=== PATIENT | female | born 1945 | race Caucasian/White ===

== ENCOUNTER 2017-05-29 10:48 | Emergency (ER) | payer MEDICARE, BC ==
[2017-05-29 12:48] LABS: Hematocrit 31 % (35-47); Hemoglobin 10.3 g/dl (12.0-16.0); Mean Corpuscular HGB Conc 34 g/dl (31-36); Mean Corpuscular Hemoglobin 32 pg (27-31); Mean Corpuscular Volume 95 fL (80-97); Mean Platelet Volume 8 um3 (7.4-10.4); Red Blood Count 3.23 10^6/ul (4.0-5.4); Red Cell Distribution Width 16 % (10.5-15); White Blood Count 5.9 10^3/ul (3.5-10.8)
[2017-05-29 13:05] LABS: ALT 17 U/L (7-52); AST 23 U/L (13-39); Albumin 3.2 g/dL (3.2-5.2); Alkaline Phosphatase 72 U/L (34-104); Anion Gap 4 mmol/L (2-11); Blood Urea Nitrogen 21 mg/dL (6-24); CO2 Carbon Dioxide 25 mmol/L (22-32); Chloride 104 mmol/L (101-111); EGFR African American 70.3 (>60); EGFR Non-African American 54.7 (>60); Globulin 3.9 g/dL (2-4); Glucose 103 mg/dL (70-100); Potassium 4.4 mmol/L (3.5-5.0); Sodium 133 mmol/L (133-145); Total Protein 7.1 g/dL (6.4-8.9)
[2017-05-29 13:06] LABS: Troponin I 0.03 ng/mL (<0.04)
[2017-05-29 13:35] LABS: Acetaminophen < 15 mcg/mL; Alcohol < 10 mg/dL (<10)
[2017-05-29 13:52] LABS: TSH (Thyroid Stimulating Horm) < 0.01 mcIU/mL (0.34-5.60)
[2017-05-29 14:22] VITALS: BP 126/78
[2017-05-29 15:17] LABS: Urine Bacteria 3+ (Absent); Urine Bilirubin Negative (Negative); Urine Glucose 1+(50 mg/dL) (Negative); Urine Nitrite Positive (Negative)
[2017-05-29 15:27] LABS: Benzodiazepine Urine Screen None Detected (None Detect)
--- NOTE | 2017-05-29 22:36 | ED ---
Jorge A Brown Julia, scribed for Neil Frausto MD on 05/29/17 at 1146 . Complex/Multi-Sys Presentation - HPI Summary HPI Summary: This patient is a 71 year old female presenting to [facility] [place] accompanied by with a chief complaint of anxiety worse earlier today. The patient rates the pain 0/10 in severity. Symptoms aggravated by not being able to get my infusion. Symptoms alleviated by spontaneous resolution. reports fall on slippery floor, and irrational behavior. Patient denies pain or injury from fall. - History Of Current Complaint Chief Complaint: EDMentalHealth Time Seen by Provider: 05/29/17 11:13 Hx Obtained From: Patient, Family/Freight Booker Onset/Duration: Gradual Onset, Resolved Severity Currently: None Severity Initially: Moderate Location: Negative - negative pain Aggravating Factor(s): not being able to get my infusion. Alleviating Factor(s): nothing Associated Signs And Symptoms: Positive: Other - reports fall on slippery floor, and irrational behavior. Patient denies pain or injury from fall. - Allergies/Home Medications Allergies/Adverse Reactions: Allergies Allergy/AdvReac Type Severity Reaction Status Date / Time Erythromycin Allergy Mild Rash Verified 05/01/13 06:48 Iodinated Contrast Media Allergy Unknown See Comment Verified 05/01/13 06:48 [CONTRAST DYE] Influenza Virus Vaccine H5N1 Allergy Numbness Verified 12/25/16 12:57 Latex Allergy ITCHY Verified 05/01/13 06:48 Sulfamethoxazole Allergy GI Upset Verified 05/01/13 06:48 w/Trimethoprim [From Bactrim] Carbamazepine [From Tegretol] AdvReac Intermediate Nausea Verified 05/01/13 06: 48 Oxymetazoline [From Afrin] AdvReac Intermediate Shortness Verified 05/01/13 06: 48 of Breath Docusate [From Colace] AdvReac Unknown Fever Verified 09/06/15 15:01 scallops Allergy Intermediate Shortness Uncoded 05/01/13 06:48 of Breath FLU SHOT Allergy NUMBNESS Uncoded 05/01/13 06:48 IN LEGS AND FEET FOR WEEKS AFTER INJECTION Home Medications: Home Medications Bromocriptine TAB* [Parlodel TAB*] 2.5 mg PO DAILY 05/29/17 [History Confirmed 05/29/17] Cholecalciferol TAB* [Vitamin D TAB*] 1,000 unit PO BID 05/29/17 [History Confirmed 05/29/17] Dexamethasone TAB* [Decadron TAB*] 28 mg PO MO 05/29/17 [History Confirmed 05/29] Escitalopram (NF) [Lexapro 10 mg (NF)] 10 mg PO DAILY 05/29/17 [History Confirmed 05/29/17] Lenalidomide (NF) [Revlimid (NF)] 25 mg PO DAILY 05/29/17 [History Confirmed ] Loperamide HCl [Imodium A-D] 2 mg PO DAILY PRN 05/29/17 [History Confirmed 05/29] Oxybutynin TAB* [Ditropan TAB*] 5 mg PO DAILY 05/29/17 [History Confirmed ] Oxycodone HCl [Oxycodone HCl ER] 10 mg PO BID 05/29/17 [History Confirmed ] Pyridoxine TAB* [Vitamin B6 TAB*] 100 mg PO DAILY 05/29/17 [History Confirmed ] Senna TAB* [Senokot TAB*] 2 tab PO DAILY PRN 05/29/17 [History Confirmed ] ValACYclovir (*) [Valtrex 500 mg (*)] 500 mg PO BID 05/29/17 [History Confirmed 05/29/17] Warfarin TAB(*) [Coumadin TAB(*)] 1 mg PO DAILY 05/29/17 [History Confirmed ] levETIRAcetam TAB* [Keppra TAB*] 500 mg PO BID 05/29/17 [History Confirmed 05/29] PMH/Surg Hx/FS Hx/Imm Hx Endocrine/Hematology History: Reports: 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, 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, CYSTS, Hx Anemia Denies: Hx Diabetes Cardiovascular History: Denies: Hx Hypertension, Hx Pacemaker/ICD Respiratory History: Reports: Hx Asthma - MILD, Hx Pulmonary Embolism - 06/2008- GI History: Reports: Other GI Disorders - CONSTIPATION, AND SOME DIARRHEA- RECENT COLONOSCOPY History: Reports: Hx Kidney Infection - 1982, Hx Kidney Stones - CALCIUM CRYSTALS IN 01/2013- AND STONES IN 1983, 2008, Hx Renal Disease - RENAL INSUFFIENCY Musculoskeletal History: Reports: Hx Arthritis - BACK AND LEFT KNEE, KNUCKLES, Hx Osteoporosis Sensory History: Reports: Hx Contacts or Glasses - GLASSES Denies: Hx Hearing Aid Opthamlomology History: Reports: Hx Contacts or Glasses - GLASSES Neurological History: Reports: 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 MELANOMA REMOVED. BREAST ADENOMAS REMOVED MULTIPLE IN . [facility] [place] IN [place] - CAN ONLY GO TO 1.5T FOR MRI. RIGHT BREAST SURGERY -04/2013[place] [place]x Anesthesia Reactions: No - PATIENT STATES IS VERY SENSITIVE Infectious Disease History: No Infectious Disease History: Denies: Traveled Outside the [place] in Last 30 Days - Family History Known Family History: Positive: Hypertension, Other - Cancers, PE - Social History Alcohol Use: None Hx Substance Use: No Substance Use Type: Reports: None Hx Tobacco Use: No Smoking Status (MU): Never Smoked Tobacco Review of Systems Constitutional: Negative - pain Negative: Fever Positive: Other - fall on slippery floor." Positive: Anxious - not currently present, Other - irrational behavior. All Other Systems Reviewed And Are Negative: Yes Physical Exam - Summary Physical Exam Summary: Appearance: The patient is well-nourished in no acute distress and in no acute pain. Skin: The skin is warm and dry and skin color reflects adequate perfusion. Patient has external oral lesions. HEENT: The head is normocephalic and atraumatic. The pupils are equal and reactive. The conjunctivae are clear and without drainage. Nares are patent and without drainage. Mouth reveals moist mucous membranes and the throat is without erythema and exudate. The external ears are intact. The ear canals are patent and without drainage. The tympanic membranes are intact. Neck: the neck is supple with full range of motion and non-tender. There are no carotid bruits. There is no neck vein distension. Respiratory: Chest is non-tender. Lungs are clear to auscultation and breath sounds are symmetrical and equal. Cardiovascular: Heart is regular rate and rhythm. There is no murmur or rub auscultated. There is no peripheral edema and pulses are symmetrical and equal. Abdomen: The abdomen is soft and non-tender. There are normal bowel sounds heard in all four quadrants and there is no organomegaly palpated. Musculoskeletal: There is no back tenderness noted. Extremities are non-tender with full range of motion. There is good capillary refill. There is no peripheral edema or calf tenderness elicited. Neurological: Patient is alert and oriented to person, place and time. The patient has symmetrical motor strength in all four extremities. Cranial nerves are grossly intact. Deep tendon reflexes are symmetrical and equal in all four extremities. Psychiatric: The patient has an appropriate affect and does not exhibit any anxiety or depression. Triage Information Reviewed: Yes Vital Signs On Initial Exam: Initial Vitals Temp Pulse Resp BP Pulse Ox 98.5 F 94 18 126/65 97 05/29/17 10:55 05/29/17 10:55 05/29/17 10:55 05/29/17 10:55 05/29/17 10:55 Vital Signs Reviewed: Yes Skin: Positive: Other - oral lesions Diagnostics - Vital Signs Vital Signs Temp Pulse Resp BP Pulse Ox 05/29/17 10:55 98.5 F 94 18 126/65 97 - Laboratory Lab Results: Lab Results 05/29/17 05/29/17 05/29/17 Range/Units 12:22 12:22 12:22 WBC 5.9 (3.5-10.8) 10^3/ul RBC 3.23 L (4.0-5.4) 10^6/ul Hgb 10.3 L (12.0-16.0) g/dl Hct 31 L (35-47) % MCV 95 (80-97) fL MCH 32 H (27-31) pg MCHC 34 (31-36) g/dl RDW 16 H (10.5-15) % Plt Count 181 (150-450) 10^3/ul MPV 8 (7.4-10.4) um3 Neut % (Auto) 72.9 (38-83) % Lymph % (Auto) 7.8 L (25-47) % Mcintosh % (Auto) 19.2 H (1-9) % Eos % (Auto) 0 (0-6) % Baso % (Auto) 0.1 (0-2) % Absolute Neuts (auto) 4.3 (1.5-7.7) 10^3/ul Absolute Lymphs (auto) 0.5 L (1.0-4.8) 10^3/ul Absolute Monos (auto) 1.1 H (0-0.8) 10^3/ul Absolute Eos (auto) 0 (0-0.6) 10^3/ul Absolute Basos (auto) 0 (0-0.2) 10^3/ul Absolute Nucleated RBC 0.01 10^3/ul Nucleated RBC % 0.1 INR (Anticoag Therapy) (0.77-1.02) Sodium 133 (133-145) mmol/L Potassium 4.4 (3.5-5.0) mmol/L Chloride 104 (101-111) mmol/L Carbon Dioxide 25 (22-32) mmol/L Anion Gap 4 (2-11) mmol/L BUN 21 (6-24) mg/dL Creatinine 1.00 H (0.51-0.95) mg/dL Est GFR ( Amer) 70.3 (>60) Est GFR (Non-Af Amer) 54.7 (>60) BUN/Creatinine Ratio 21.0 H (8-20) Glucose 103 H (70-100) mg/dL Lactic Acid (0.5-2.0) mmol/L Calcium 9.0 (8.6-10.3) mg/dL Total Bilirubin 0.30 (0.2-1.0) mg/dL AST 23 (13-39) U/L ALT 17 (7-52) U/L Alkaline Phosphatase 72 (34-104) U/L Ammonia 44 (16-53) mol/L Troponin I 0.03 (<0.04) ng/mL Total Protein 7.1 (6.4-8.9) g/dL Albumin 3.2 (3.2-5.2) g/dL Globulin 3.9 (2-4) g/dL Albumin/Globulin Ratio 0.8 L (1-3) TSH < 0.01 L (0.34-5.60) mcIU/mL Urine Color Urine Appearance Urine pH (5-9) Ur Specific [place] (1.010-1.030) Urine Protein (Negative) Urine Ketones (Negative) Urine Blood (Negative) Urine Nitrate (Negative) Urine Bilirubin (Negative) Urine Urobilinogen (Negative) Ur Leukocyte Esterase (Negative) Urine WBC (Auto) (Absent) Urine RBC (Auto) (Absent) Ur Squamous Epith Cells (Absent) Urine Bacteria (Absent) Hyaline Casts (Absent) Urine Glucose (Negative) Urine Opiates Screen (None Detect) Acetaminophen < 15 mcg/mL Ur Barbiturates Screen (None Detect) Ur Phencyclidine Scrn (None Detect) Ur Amphetamines Screen (None Detect) U Benzodiazepines Scrn (None Detect) Urine Cocaine Screen (None Detect) U Cannabinoids Screen (None Detect) Serum Alcohol < 10 (<10) mg/dL 05/29/17 05/29/17 05/29/17 Range/Units 12:22 12:22 13:15 WBC (3.5-10.8) 10^3/ul RBC (4.0-5.4) 10^6/ul Hgb (12.0-16.0) g/dl Hct (35-47) % MCV (80-97) fL MCH (27-31) pg MCHC (31-36) g/dl RDW (10.5-15) % Plt Count (150-450) 10^3/ul MPV (7.4-10.4) um3 Neut % (Auto) (38-83) % Lymph % (Auto) (25-47) % Mcintosh % (Auto) (1-9) % Eos % (Auto) (0-6) % Baso % (Auto) (0-2) % Absolute Neuts (auto) (1.5-7.7) 10^3/ul Absolute Lymphs (auto) (1.0-4.8) 10^3/ul Absolute Monos (auto) (0-0.8) 10^3/ul Absolute Eos (auto) (0-0.6) 10^3/ul Absolute Basos (auto) (0-0.2) 10^3/ul Absolute Nucleated RBC 10^3/ul Nucleated RBC % INR (Anticoag Therapy) 2.68 H (0.77-1.02) Sodium (133-145) mmol/L Potassium (3.5-5.0) mmol/L Chloride (101-111) mmol/L Carbon Dioxide (22-32) mmol/L Anion Gap (2-11) mmol/L BUN (6-24) mg/dL Creatinine (0.51-0.95) mg/dL Est GFR ( Amer) (>60) Est GFR (Non-Af Amer) (>60) BUN/Creatinine Ratio (8-20) Glucose (70-100) mg/dL Lactic Acid 1.1 (0.5-2.0) mmol/L Calcium (8.6-10.3) mg/dL Total Bilirubin (0.2-1.0) mg/dL AST (13-39) U/L ALT (7-52) U/L Alkaline Phosphatase (34-104) U/L Ammonia (16-53) mol/L Troponin I (<0.04) ng/mL Total Protein (6.4-8.9) g/dL Albumin (3.2-5.2) g/dL Globulin (2-4) g/dL Albumin/Globulin Ratio (1-3) TSH (0.34-5.60) mcIU/mL Urine Color Urine Appearance Urine pH (5-9) Ur Specific [place] (1.010-1.030) Urine Protein (Negative) Urine Ketones (Negative) Urine Blood (Negative) Urine Nitrate (Negative) Urine Bilirubin (Negative) Urine Urobilinogen (Negative) Ur Leukocyte Esterase (Negative) Urine WBC (Auto) (Absent) Urine RBC (Auto) (Absent) Ur Squamous Epith Cells (Absent) Urine Bacteria (Absent) Hyaline Casts (Absent) Urine Glucose (Negative) Urine Opiates Screen Presumptive positive H (None Detect) Acetaminophen mcg/mL Ur Barbiturates Screen None detected (None Detect) Ur Phencyclidine Scrn None detected (None Detect) Ur Amphetamines Screen None detected (None Detect) U Benzodiazepines Scrn None detected (None Detect) Urine Cocaine Screen None detected (None Detect) U Cannabinoids Screen None detected (None Detect) Serum Alcohol (<10) mg/dL 05/29/17 Range/Units 13:15 WBC (3.5-10.8) 10^3/ul RBC (4.0-5.4) 10^6/ul Hgb (12.0-16.0) g/dl Hct (35-47) % MCV (80-97) fL MCH (27-31) pg MCHC (31-36) g/dl RDW (10.5-15) % Plt Count (150-450) 10^3/ul MPV (7.4-10.4) um3 Neut % (Auto) (38-83) % Lymph % (Auto) (25-47) % Mcintosh % (Auto) (1-9) % Eos % (Auto) (0-6) % Baso % (Auto) (0-2) % Absolute Neuts (auto) (1.5-7.7) 10^3/ul Absolute Lymphs (auto) (1.0-4.8) 10^3/ul Absolute Monos (auto) (0-0.8) 10^3/ul Absolute Eos (auto) (0-0.6) 10^3/ul Absolute Basos (auto) (0-0.2) 10^3/ul Absolute Nucleated RBC 10^3/ul Nucleated RBC % INR (Anticoag Therapy) (0.77-1.02) Sodium (133-145) mmol/L Potassium (3.5-5.0) mmol/L Chloride (101-111) mmol/L Carbon Dioxide (22-32) mmol/L Anion Gap (2-11) mmol/L BUN (6-24) mg/dL Creatinine (0.51-0.95) mg/dL Est GFR ( Amer) (>60) Est GFR (Non-Af Amer) (>60) BUN/Creatinine Ratio (8-20) Glucose (70-100) mg/dL Lactic Acid (0.5-2.0) mmol/L Calcium (8.6-10.3) mg/dL Total Bilirubin (0.2-1.0) mg/dL AST (13-39) U/L ALT (7-52) U/L Alkaline Phosphatase (34-104) U/L Ammonia (16-53) mol/L Troponin I (<0.04) ng/mL Total Protein (6.4-8.9) g/dL Albumin (3.2-5.2) g/dL Globulin (2-4) g/dL Albumin/Globulin Ratio (1-3) TSH (0.34-5.60) mcIU/mL Urine Color Aline Urine Appearance Turbid Urine pH 5.0 (5-9) Ur Specific [place] 1.019 (1.010-1.030) Urine Protein 1+(30 mg/dl) H (Negative) Urine Ketones Negative (Negative) Urine Blood 2+ H (Negative) Urine Nitrate Positive H (Negative) Urine Bilirubin Negative (Negative) Urine Urobilinogen Negative (Negative) Ur Leukocyte Esterase 3+ H (Negative) Urine WBC (Auto) 3+(>20/hpf) H (Absent) Urine RBC (Auto) 3+(>10/hpf) H (Absent) Ur Squamous Epith Cells Present H (Absent) Urine Bacteria 3+ H (Absent) Hyaline Casts Present H (Absent) Urine Glucose 1+(50 mg/dl) H (Negative) Urine Opiates Screen (None Detect) Acetaminophen mcg/mL Ur Barbiturates Screen (None Detect) Ur Phencyclidine Scrn (None Detect) Ur Amphetamines Screen (None Detect) U Benzodiazepines Scrn (None Detect) Urine Cocaine Screen (None Detect) U Cannabinoids Screen (None Detect) Serum Alcohol (<10) mg/dL Result Diagrams: 05/29/17 12:22 05/29/17 12:22 Lab Statement: Any lab studies that have been ordered have been reviewed, and results considered in the medical decision making process. - EKG 1156 Cardiac Rate: NL EKG Rhythm: Sinus Rhythm - 82 BPM EKG Interpretation: Baseline artifact. Complex Multi-Symp Course/Dx Course Of Treatment: Ms. Tim was sent over from the infusion center for creating a disturbance. Her SO reports that she gets very anxious everytime that she leaves the house but that it was worse today. By the time she got here she was calmed down a lot. It was reported that she has acted this way in the past when her labs were 'off' and therefore labs were checked and WNL. She remained calm and they both felt comfortable going home and she was D/C'd. After D/C, her U/A returned and was positive for a UTI. An attempt was made to send a script for an antibiotic but we have no pharmacy listed for her. A call was placed and a message left for them to contact us to get a script to treat her UTI. - Diagnoses Provider Diagnoses: Anxiety Discharge - Discharge Plan Condition: Stable Disposition: HOME Prescriptions: Nitrofurantoin Monohyd Macro [Macrobid] 100 mg PO BID #10 cap Patient Education Materials: Anxiety (ED) Referrals: Arnav Rodriges MD [Primary Care Provider] - 3 Days Additional Instructions: RETURN TO THE EMERGENCY DEPARTMENT FOR CHANGING OR WORSENING SYMPTOMS. The documentation as recorded by the Jorge A kerns Julia accurately reflects the service I personally performed and the decisions made by me, Neil Frausto MD.
--- NOTE | 2017-05-31 09:52 | PN ---
Progress Note - Progress Note Date of Service: 05/31/17 Note: Patient urine culture grew Klebsiella >100,000 and Citrobacter >100,000. patient placed on macrobid will wait for final culture for sensitive.
== END 2017-05-29 14:00 | disposition home or self-care (01) ==
LOC: ED 10:48
DX: F41.9 Anxiety disorder, unspecified (principal); N39.0 Urinary tract infection, site not specified; B96.1 Klebsiella pneumoniae [K. pneumoniae] as the cause of diseases classified elsewhere; B96.89 Other specified bacterial agents as the cause of diseases classified elsewhere; Z88.2 Allergy status to sulfonamides; Z88.7 Allergy status to serum and vaccine; Z88.1 Allergy status to other antibiotic agents; Z91.041 Radiographic dye allergy status; Z91.040 Latex allergy status; E07.9 Disorder of thyroid, unspecified; J45.909 Unspecified asthma, uncomplicated; Z86.711 Personal history of pulmonary embolism; Z79.01 Long term (current) use of anticoagulants; N28.9 Disorder of kidney and ureter, unspecified; Z87.442 Personal history of urinary calculi; G40.409 Other generalized epilepsy and epileptic syndromes, not intractable, without status epilepticus; Z85.820 Personal history of malignant melanoma of skin
CPT/HCPCS: 36415; 80053; 80307; 80320; 80329; 81003; 81015; 82140; 83605; 84443; 84484; 85025; 85610; 87077; 87086; 87186; 93005; 99284; G0480